=== PATIENT | male | born 1940 | race Caucasian/White ===

== ENCOUNTER 2016-08-22 11:16 | Emergency (ER) | payer OTHER ==
[2016-08-22 13:49] LABS: MANUAL DIFF NEEDED? NO
[2016-08-22 13:49] LABS: URINE CULTURE NEEDED? NO; URINE MICRO REVIEW NEEDED? NO; URINE SOURCE CLEAN CATCH
[2016-08-22 13:54] LABS: BILIRUBIN URINE NEGATIVE (NEGATIVE); BLOOD URINE NEGATIVE (NEGATIVE); COLOR YELLOW; GLUCOSE URINE NEGATIVE (NEGATIVE); LEUKOCYTES URINE NEGATIVE (NEGATIVE); NITRITE URINE NEGATIVE (NEGATIVE); PH URINE 5.5; PROTEIN URINE TRACE mg/dL (NEGATIVE); SP GRAVITY URINE 1.016; TURBIDITY URINE CLEAR (CLEAR); UR EPITHELIAL CELLS <10 /HPF (<10); URINE BACTERIA NEGATIVE /HPF; URINE RBC <10 /HPF (<10); URINE WBC <10 /HPF (<10); UROBILINOGEN URINE NORMAL (NORMAL)
--- NOTE | 2016-08-22 13:56 | PROVIDER DOCUMENTATION ---
HPI-Male Problem - General Chief Complaint: Urinary Retention Stated Complaint: UNABLE TO URINATE Time Seen by Provider: 08/22/16 12:38 Source: patient Allergies/Adverse Reactions: Patient Allergies Allergy/AdvReac Type Severity Reaction Status Date / Time No Known Allergies Allergy Verified 08/22/16 12:29 Home Medications: Fluoxetine HCl [Prozac] 40 mg PO DAILY 03/27/14 Fosinopril Sodium [Monopril] 40 mg PO BID 03/27/14 Indapamide [Lozol] 2.5 mg PO DAILY 03/27/14 Metformin [Glucophage] 2 tab PO TID 03/27/14 Omeprazole [Prilosec] 20 mg PO DAILY@0700 03/27/14 Pregabalin [Lyrica] 100 mg PO TID 03/27/14 Atorvastatin Calcium 20 mg PO QHS 05/21/15 Glipizide 10 mg PO BID 05/21/15 Metoprolol [Lopressor] 50 mg PO BID 05/21/15 NPH, Human Insulin Isophane [Novolin N] 20 unit SQ QHS 08/22/16 - History of Present Illness-Male Nature of Presenting Problem: patient is a 75 y/o M that presents to the Er with urinary retention x 24 hours. denies any pain. Denies fever/chills, n/v/d, or back pain. No recent surgery. Location of Complaint: denies: suprapubic, right flank, left flank, groin, urethral, scrotal Radiation: reports: none Quality of Pain: reports: none. denies: fullness, pressure Severity in ED: reports: moderate Onset/Duration: reports: abrupt, 24 hours ago Timing: reports: still present, constant Context/Activities at Onset: reports: none Urinary Symptoms: reports: retention. denies: dysuria, frequency, hematuria, urgency, low back pain Associated Symptoms: reports: none Associated Symptoms: denies: back/neck pain, diarrhea, fever/chills, nausea, vomiting Similar Symptoms Previously?: No Recently seen or treated by another doctor?: No Review of Systems - Adult - REVIEW OF SYSTEMS - ADULT Constitutional: denies: chills, fever Eyes: denies: double vision Ears, Nose, Mouth & Throat: reports: no symptoms reported Cardiovascular: denies: chest pain, palpitations, syncope Respiratory: denies: cough, shortness of breath, wheezing Gastrointestinal: reports: abdominal pain. denies: diarrhea, nausea, vomiting Genitourinary: reports: urinary retention. denies: discharge, frequency, hesitency Musculoskeletal: reports: no symptoms reported Integumentary: reports: no symptoms reported Neurological: reports: no symptoms reported Psychiatric: reports: no symptoms reported Endocrine: reports: no symptoms reported Hematologic/Lymphatic: reports: no symptoms reported Allergic/Immunologic: reports: no symptoms reported All Other Systems: Reviewed and Negative Past History - Adult - PAST MEDICAL HISTORY-ADULT Review of Records: reports: Old Records Reviewed, Nursing Assessment Review, Medications Reviewed Cardiovascular: reports: HTN Respiratory: reports: pneumonia Musculoskeletal: reports: arthritis, neck/back injury, orthopedic injury - PRIOR SURGERIES/PROCEDURES Surgical/Procedure History: reports: orthopedic (extremity), back/neck, other ( prostate removed, right ) - IMMUNIZATION STATUS Childhood Immunizations: See Nurse Assessment Flu Vaccine: See Nurse Assessment - FAMILY HISTORY Family History: reviewed, not pertinent - SOCIAL HISTORY Smoking: non-smoker Living Situation: family Physical Exam-General - PHYSICAL EXAM-ADULT Initial Vital Signs Reviewed: Yes - CONSTITUTIONAL General Appearance: alert, no apparent distress - EYES Eyes: PERRL/EOMI, pink conjunctivae - HEAD, EARS, NOSE, MOUTH & THROAT HENMT: normocephalic/atraumatic, moist mucous membranes, normal ENT inspection - NECK Neck: full range of motion, normal inspection - RESPIRATORY Respiratory: lungs clear, normal breath sounds, no respiratory distress, no accessory muscle use - CARDIOVASCULAR Cardiovascular: normal peripheral pulses, regular rate, rhythm - GASTROINTESTINAL (ABDOMEN) Abdominal Exam: normal bowel sounds, non tender, soft, no organomegaly, no pulsatile mass - MUSCULOSKELETAL Back Exam: no CVA tenderness, no vertebral tenderness Extremity: normal range of motion, no pedal edema, no calf tenderness, pelvis stable - SKIN Integumentary: normal color, warm/dry - NEUROLOGIC Neurologic: grossly normal, no motor/sensory deficits - PSYCHIATRIC Psych/Mental Status: normal mood/affect, normal thought content, normal thought process, oriented x 3 Progress - PLAN OF CARE/RESULTS Progress/Plan/Lab Results: plan of care-labs Vital Signs Temp Pulse Resp BP Pulse Ox 08/22/16 11:34 97.8 F 83 18 138/83 100 No Known Allergies Allergy (Verified 01/05/17 12:29) Fluoxetine HCl [Prozac] 40 mg PO DAILY 03/27/14 Fosinopril Sodium [Monopril] 40 mg PO BID 03/27/14 Indapamide [Lozol] 2.5 mg PO DAILY 03/27/14 Metformin [Glucophage] 2 tab PO TID 03/27/14 Omeprazole [Prilosec] 20 mg PO DAILY@0700 03/27/14 Pregabalin [Lyrica] 100 mg PO TID 03/27/14 Atorvastatin Calcium 20 mg PO QHS 05/21/15 Glipizide 10 mg PO BID 05/21/15 Metoprolol [Lopressor] 50 mg PO BID 05/21/15 NPH, Human Insulin Isophane [Novolin N] 20 unit SQ QHS 08/22/16 I&O 08/21/16 08/22/16 08/23/16 06:59 06:59 06:59 Output Total 50 Balance -50 Laboratory 08/22/16 08/22/16 08/22/16 16:24 13:42 13:17 WBC RBC Hgb Hct MCV MCH MCHC RDW Std Deviation Plt Count MPV Neut % (Auto) Lymph % (Auto) [place] % (Auto) Eos % (Auto) Baso % (Auto) Neut # (Auto) Lymph # (Auto) [place] # (Auto) Eos # (Auto) Baso # (Auto) Sodium 133 L Potassium 3.5 Chloride 98 Carbon Dioxide 19 L Anion Gap 16 BUN 26 H Creatinine 1.9 H Estimated GFR/1.73 m2 35 BUN/Creatinine Ratio 14 Glucose 76 Calculated Osmolality 270 Calcium 8.1 L Total Bilirubin AST ALT Alkaline Phosphatase Xrf-N-Kotolggwazd Pept 291 H Total Protein Albumin Globulin Albumin/Globulin Ratio Urine Source CLEAN CATCH Urine Color YELLOW Urine Turbidity CLEAR Urine pH 5.5 Ur Specific [place] 1.016 Urine Protein TRACE A Ur Glucose (Stick) NEGATIVE Ur Ketones (Stick) 10 A Urine Blood NEGATIVE Urine Nitrite NEGATIVE Urine Bilirubin NEGATIVE Urobilinogen Dipstick NORMAL Urine Leukocytes NEGATIVE Urine WBC (Auto) <10 Urine RBC (Auto) <10 U Epithel Cells (Auto) <10 Urine Bacteria (Auto) NEGATIVE 08/22/16 08/22/16 13:17 13:17 WBC 9.96 RBC 3.84 L Hgb 11.9 L Hct 34.2 L MCV 89.1 MCH 31.0 MCHC 34.8 RDW Std Deviation 12.2 Plt Count 326 MPV 10.3 Neut % (Auto) 73.4 Lymph % (Auto) 17.0 L [place] % (Auto) 8.9 Eos % (Auto) 0.5 Baso % (Auto) 0.2 Neut # (Auto) 7.31 H Lymph # (Auto) 1.69 [place] # (Auto) 0.89 H Eos # (Auto) 0.05 Baso # (Auto) 0.02 Sodium 125 L Potassium 3.6 Chloride 87 L Carbon Dioxide 20 L Anion Gap 18 BUN 27 H Creatinine 2.1 H Estimated GFR/1.73 m2 31 BUN/Creatinine Ratio 13 Glucose 95 Calculated Osmolality 256 Calcium 9.0 Total Bilirubin 0.36 AST 28 ALT 31 Alkaline Phosphatase 93 Zfz-S-Skfwoinyloh Pept Total Protein 7.0 Albumin 3.9 Globulin 3.1 Albumin/Globulin Ratio 1.3 Urine Source Urine Color Urine Turbidity Urine pH Ur Specific [place] Urine Protein Ur Glucose (Stick) Ur Ketones (Stick) Urine Blood Urine Nitrite Urine Bilirubin Urobilinogen Dipstick Urine Leukocytes Urine WBC (Auto) Urine RBC (Auto) U Epithel Cells (Auto) Urine Bacteria (Auto) Orders Category Date Time Status BMP [BASIC METABOLIC PANEL] [CHEM] Stat Lab 08/22/16 16:24 Completed BNP [PRO B-NATRIURETIC PEPTIDE] Stat Lab 08/22/16 13:17 Completed CBC WITH ELECTRONIC DIFF [HEME] Stat Lab 08/22/16 13:17 Completed CMP [COMPREHENSIVE METABOLIC PANEL] [CHEM] Stat Lab 08/22/16 13:17 Completed UA NIMS W/REFLEX CULT [URINALYSIS] Stat Lab 08/22/16 13:42 Completed 0.9% Sodium Chloride Inj [Ns] 1,000 ml Med 08/22/16 14:22 Discontinued IV 999 mls/hr 0.9% Sodium Chloride Inj [Ns] 1,000 ml Med 08/22/16 14:25 Discontinued IV 999 mls/hr pt will be d/c home fu with va as needed, pt was clinically stable Departure - Departure Time of Disposition Order: 17:13 DIAGNOSIS: Renal insufficiency Disposition: HOME 01 Certified Medical Emergency: Emergent Condition: Stable Additional Instructions: increase fluid intake( water) ED Follow Up Instructions: You have been treated by a care provider in the Emergency Department. These instructions are being provided to you so you can have an understanding of how to care for yourself upon discharge. Upon discharge from the Emergency Department, you are responsible for making arrangements for follow-up care by a physician of your choice. Take all prescribed medications as directed. Return to the Emergency Department immediately for any new or worsening symptoms. You may call the Physician Referral phone number at [phone] to obtain a list of Physicians who are taking new patients. Attestation - Scribe Verification/Attestation Scribe:: Sean Pantoja Acting as Scribe for:: Matias Suarez Scribe documention review:: This chart was documented by a scribe and accurately reflects the service the provider performed and the decisions made by the provider. Physician Attestation - Physician Attestation I, the provider, attest to the following statement:: Matias Suarez Physician documentation Attestation:: This documentation recorded by the scribe accurately reflects the service I personally performed and the decisions made by me.
[2016-08-22 14:01] LABS: BASO% 0.2 % (0.0-0.8); EOS# 0.05 X1000 (0.0-0.7); EOS% 0.5 % (0.0-10.0); HEMATOCRIT 34.2 % (42.0-52.0); HEMOGLOBIN 11.9 g/dL (14.0-18.0); LYMPH# 1.69 X1000 (1.2-3.4); MCHC 34.8 g/dL (33-37); MCV 89.1 FL (81-99); MONO# 0.89 X1000 (0.11-0.59); MONO% 8.9 % (1.7-9.3); MPV 10.3 FL (7.4-10.4); NEUT% 73.4 % (42.2-75.2); PLT 326 X1000 (130-400); RBC 3.84 XMIL (4.7-6.1)
[2016-08-22 14:20] LABS: ALBUMIN 3.9 g/dL (3.5-5.0); POTASSIUM 3.6 mmol/L (3.5-5.1); TOTAL BILIRUBIN 0.36 mg/dL (0.20-1.00)
[2016-08-22] MEDS ORDERED: NS 1,000 ML IV ONE ×2 (14:22→14:25)
[2016-08-22 17:03] LABS: CALCIUM 8.1 mg/dL (8.8-10.2); POTASSIUM 3.5 mmol/L (3.5-5.1)
[2016-08-22 18:06] VITALS: BP 154/78
== END 2016-08-22 18:14 | disposition home or self-care (01) ==
LOC: ED 11:16
DX: N28.9 Disorder of kidney and ureter, unspecified (principal); R33.9 Retention of urine, unspecified; R10.9 Unspecified abdominal pain; I10 Essential (primary) hypertension; M19.90 Unspecified osteoarthritis, unspecified site; Z87.09 Personal history of other diseases of the respiratory system; Z79.899 Other long term (current) drug therapy; Z79.4 Long term (current) use of insulin
CPT/HCPCS: 36415; 80048; 80053; 81001; 83880; 85025; 99283; J7030

== ENCOUNTER 2016-08-24 11:54 | Emergency (ER) | payer OTHER ==
[2016-08-24] MEDS ORDERED: NS 1,000 ML IV ONE (13:15)
--- NOTE | 2016-08-24 13:19 | PROVIDER DOCUMENTATION ---
HPI-Male Problem - General Source: patient - History of Present Illness-Male Location of Complaint: reports: other (none) Radiation: reports: none Quality of Pain: reports: none Onset/Duration: reports: last night Timing: reports: still present Urinary Symptoms: reports: retention <Quin Aldrich - Last Filed: 08/24/16 17:57> <Ana Chapa - Last Filed: 08/24/16 18:38> - General Chief Complaint: Urinary Retention Stated Complaint: KIDNEY ISSUES Time Seen by Provider: 08/24/16 12:43 Allergies/Adverse Reactions: Patient Allergies Allergy/AdvReac Type Severity Reaction Status Date / Time No Known Allergies Allergy Verified 08/24/16 12:58 Home Medications: Fluoxetine HCl [Prozac] 40 mg PO DAILY 03/27/14 Fosinopril Sodium [Monopril] 40 mg PO BID 03/27/14 Indapamide [Lozol] 2.5 mg PO DAILY 03/27/14 Metformin [Glucophage] 2 tab PO TID 03/27/14 Omeprazole [Prilosec] 20 mg PO DAILY@0700 03/27/14 Pregabalin [Lyrica] 100 mg PO TID 03/27/14 Atorvastatin Calcium 20 mg PO QHS 05/21/15 Glipizide 10 mg PO BID 05/21/15 Metoprolol [Lopressor] 50 mg PO BID 05/21/15 NPH, Human Insulin Isophane [Novolin N] 20 unit SQ QHS 08/22/16 - History of Present Illness-Male Nature of Presenting Problem: Pt is a 75 yom who came to the ED with a cc of not being able to pee. Pt reports he hasn't peed since yesterday and said he has drank a lot of fluids. Pt reports he feels like doesn't have to pee. (Quin Aldrich) Review of Systems - Adult - REVIEW OF SYSTEMS - ADULT Constitutional: denies: chills, fever Eyes: denies: decreased vision, double vision Ears, Nose, Mouth & Throat: denies: sinus problem, loose teeth Cardiovascular: reports: no symptoms reported Respiratory: denies: cough, pleurisy Gastrointestinal: reports: no symptoms reported Genitourinary: reports: urinary retention. denies: frequent UTI's, hesitency Musculoskeletal: reports: no symptoms reported Integumentary: denies: mole changes, nail changes Neurological: reports: no symptoms reported Psychiatric: reports: no symptoms reported Endocrine: reports: no symptoms reported Hematologic/Lymphatic: reports: no symptoms reported Allergic/Immunologic: reports: no symptoms reported All Other Systems: Reviewed and Negative <ValdemarAzam maldonadonzie - Last Filed: 08/24/16 17:57> Past History - Adult - PAST MEDICAL HISTORY-ADULT Review of Records: reports: Old Records Reviewed, Nursing Assessment Review Major Childhood Illnesses: reports: denies history Cardiovascular: reports: HTN, hyperlipidemia Respiratory: reports: pneumonia Gastrointestinal: reports: denies history Obstetrical/Gynecological: reports: denies history Genitourinary: reports: denies history Musculoskeletal: reports: arthritis, neck/back injury, orthopedic injury Neurological: reports: denies history Endocrine/Immune: reports: denies history Other Conditions: reports: denies history - PRIOR SURGERIES/PROCEDURES Surgical/Procedure History: reports: cholecystectomy, orthopedic (extremity), back/neck, other (prostate removed, right ) - IMMUNIZATION STATUS Childhood Immunizations: See Nurse Assessment Flu Vaccine: See Nurse Assessment - FAMILY HISTORY Family History: reviewed, not pertinent <ValdemarQuin - Last Filed: 08/24/16 17:57> Physical Exam-General - PHYSICAL EXAM-ADULT Initial Vital Signs Reviewed: Yes - CONSTITUTIONAL General Appearance: appears well, alert, no apparent distress - EYES Eyes: PERRL/EOMI, pink conjunctivae - HEAD, EARS, NOSE, MOUTH & THROAT HENMT: normocephalic/atraumatic, moist mucous membranes, normal ENT inspection - NECK Neck: non-tender, full range of motion, normal inspection - RESPIRATORY Respiratory: chest non-tender, lungs clear, normal breath sounds - CARDIOVASCULAR Cardiovascular: normal peripheral pulses, regular rate, rhythm, no edema - GASTROINTESTINAL (ABDOMEN) Abdominal Exam: normal bowel sounds, non tender, soft - LYMPHATIC Lymphatic: no adenopathy - MUSCULOSKELETAL Back Exam: normal inspection, no CVA tenderness, no vertebral tenderness Extremity: normal range of motion, non-tender, normal gait - SKIN Integumentary: normal color, normal turgor, warm/dry - NEUROLOGIC Neurologic: grossly normal, no motor/sensory deficits - PSYCHIATRIC Psych/Mental Status: normal mood/affect, normal thought content, normal thought process, oriented x 3 <Quin Aldrich - Last Filed: 08/24/16 17:57> Progress - CHANGE OF SHIFT REPORT (ED Provider) Report Given and Care Transferred to:: Dr. Hankins Time of Transfer: 17:57 Items Pending: Physician Consult/Arrival <Quin Aldrich - Last Filed: 08/24/16 17:57> - XRAY 1 XRAY Study: Chest XRAY Interpretation: NAF/no changes from previuos <Ana Chapa - Last Filed: 08/24/16 18:38> - PLAN OF CARE/RESULTS Progress/Plan/Lab Results: Vital Signs - 24 hr 08/24/16 12:03 Temperature 98.2 F Pulse Rate 84 Respiratory 18 Rate Blood Pressure 122/68 O2 Sat by Pulse 100 Oximetry Orders Category Date Time Status Tenorio Cath Insertion ORDERED Care 08/24/16 12:43 Active Saline Loc NOW Care 08/24/16 13:12 Active CBC WITH ELECTRONIC DIFF [HEME] Stat Lab 08/24/16 13:12 Uncollected CK PROFILE [SP CHEM] Stat Lab 08/24/16 13:12 Uncollected COMPREHENSIVE METABOLIC PANEL [CHEM] Stat Lab 08/24/16 13:12 Uncollected MAGNESIUM [CHEM] Stat Lab 08/24/16 13:12 Uncollected PRO B-NATRIURETIC PEPTIDE Stat Lab 08/24/16 13:12 Uncollected TROPONIN T Stat Lab 08/24/16 13:12 Uncollected UA NIMS W/REFLEX CULT [URINALYSIS] Stat Lab 08/24/16 13:20 Ordered 0.9% Sodium Chloride Inj [Ns] 1,000 ml Med 08/24/16 13:15 Active IV 999 mls/hr (Quin Aldrich) Departure <Quin Aldrich - Last Filed: 08/24/16 17:57> - Departure Time of Disposition Order: 18:37 Certified Medical Emergency: Emergent <Ana Chapa - Last Filed: 08/24/16 18:38> - Departure DIAGNOSIS: Urinary retention Disposition: HOME 01 Condition: Stable Additional Instructions: ED Follow Up Instructions: You have been treated by a care provider in the Emergency Department. These instructions are being provided to you so you can have an understanding of how to care for yourself upon discharge. Upon discharge from the Emergency Department, you are responsible for making arrangements for follow-up care by a physician of your choice. Take all prescribed medications as directed. Return to the Emergency Department immediately for any new or worsening symptoms. You may call the Physician Referral phone number at [phone] to obtain a list of Physicians who are taking new patients. Attestation - Scribe Verification/Attestation Scribe:: Quin Aldrich Acting as Scribe for:: Everardo Millard Scribe documention review:: This chart was documented by a scribe and accurately reflects the service the provider performed and the decisions made by the provider. <Quin Aldrich - Last Filed: 08/24/16 17:57> - Scribe Verification/Attestation Scribe:: Ana Chapa Acting as Scribe for:: Jose Hankins Scribe documention review:: This chart was documented by a scribe and accurately reflects the service the provider performed and the decisions made by the provider. <Ana Chapa - Last Filed: 08/24/16 18:38> Physician Attestation
[2016-08-24 13:31] LABS: URINE CULTURE NEEDED? NO; URINE MICRO REVIEW NEEDED? NO; URINE SOURCE CATH
[2016-08-24 13:35] LABS: BILIRUBIN URINE NEGATIVE (NEGATIVE); BLOOD URINE NEGATIVE (NEGATIVE); COLOR YELLOW; GLUCOSE URINE NEGATIVE (NEGATIVE); LEUKOCYTES URINE NEGATIVE (NEGATIVE); NITRITE URINE NEGATIVE (NEGATIVE); PROTEIN URINE TRACE mg/dL (NEGATIVE); SP GRAVITY URINE 1.022; TURBIDITY URINE CLEAR (CLEAR); UROBILINOGEN URINE NORMAL (NORMAL)
[2016-08-24 13:36] LABS: UR EPITHELIAL CELLS <10 /HPF (<10); URINE BACTERIA NEGATIVE /HPF; URINE RBC <10 /HPF (<10); URINE WBC <10 /HPF (<10)
[2016-08-24 13:59] LABS: MANUAL DIFF NEEDED? NO
[2016-08-24 14:08] LABS: BASO% 0.2 % (0.0-0.8); EOS# 0.09 X1000 (0.0-0.7); EOS% 0.8 % (0.0-10.0); HEMATOCRIT 30.9 % (42.0-52.0); HEMOGLOBIN 10.7 g/dL (14.0-18.0); LYMPH# 1.75 X1000 (1.2-3.4); LYMPH% 15.4 % (20.5-51.1); MCH 30.9 PG (27-31); MCHC 34.6 g/dL (33-37); MCV 89.3 FL (81-99); MONO# 0.97 X1000 (0.11-0.59); MONO% 8.6 % (1.7-9.3); MPV 10.4 FL (7.4-10.4); PLT 312 X1000 (130-400); RBC 3.46 XMIL (4.7-6.1)
[2016-08-24 14:27] LABS: ALBUMIN 3.7 g/dL (3.5-5.0); CALCIUM 8.6 mg/dL (8.8-10.2); MAGNESIUM 1.2 mg/dL (1.5-2.7); POTASSIUM 3.3 mmol/L (3.5-5.1); TOTAL BILIRUBIN 0.35 mg/dL (0.20-1.00); TOTAL PROTEIN 6.6 g/dL (6.3-8.3)
[2016-08-24 14:53] LABS: CK INDEX 2.3 (0.0-2.5); CK-MB 6.01 ng/mL (0.0-5.0)
[2016-08-24] MEDS ORDERED: KLOR-CON PO ONE (15:08)
[2016-08-24 15:57] LABS: ALLEN TEST YES; BE -3.8 mmoll (-3.0-3.0); BLOOD TYPE ARTERIAL; DRAW SITE L RADIAL; METHB 1.4 % (0.0-1.5); O2(CT) 15.4 mL/dL (15.0-23.0); PCO2(98.6) 22 mmHg (35-45); PO2(98.6) 90 mmHg (60-100); SAMPLE BLOOD; SAO2 97.8 % (95.0-100.0); THB 11.4 g/dL (11.5-17.4); pH(98.6) 7.51 (7.35-7.45)
[2016-08-24 15:58] LABS: MODALITY ROOM AIR
[2016-08-24 19:01] VITALS: BP 146/97
--- NOTE | 2016-08-24 21:51 | Diag Imaging Result Document ---
PROCEDURE NAME: CHEST-PORTABLE - 08/24/2016 SINGLE FRONTAL RADIOGRAPH OF THE CHEST: COMPARISON: 05/21/2015. FINDINGS: There is stable atelectasis versus scarring at the lung bases, more prominent on the left. The lungs are clear otherwise. Cardiac silhouette and central vasculature are grossly unremarkable. IMPRESSION: Stable bibasilar atelectasis versus scarring. No definite acute pathology.
== END 2016-08-24 19:01 | disposition home or self-care (01) ==
LOC: ED 11:54
DX: R33.9 Retention of urine, unspecified (principal); I10 Essential (primary) hypertension; E78.5 Hyperlipidemia, unspecified; M19.90 Unspecified osteoarthritis, unspecified site; Z79.899 Other long term (current) drug therapy; Z79.4 Long term (current) use of insulin
CPT/HCPCS: 51702; 51798; 71010; 80053; 81001; 82550; 82553; 82805; 83735; 83880; 84484; 85025; 99284; J7030